=== PATIENT | male | born 1950 | race Caucasian/White ===

== ENCOUNTER 2016-05-27 09:17 | Day surgery (SDC) | payer MEDICARE, OTHER ==
[~2016-05-27 09:17] MED LIST: LIDOCAINE HCL 1% MPF SOL ONE; PROPOFOL 500 MG/50 ML EMU IV ONE
[2016-05-27 11:51] VITALS: RESP 20; TEMP 97.8; O2SAT 100
[2016-05-27 11:58] VITALS: BP 133/77; PULSE 67
== END 2016-05-27 12:05 | disposition home or self-care (01) | DRG 951 ==
LOC: SURG 09:17
PROVIDERS: ATTEND Surgery
DX: Z12.11 Encounter for screening for malignant neoplasm of colon (principal); K57.30 Diverticulosis of large intestine without perforation or abscess without bleeding; K63.89 Other specified diseases of intestine
CPT/HCPCS: J2001; J2704